=== PATIENT | male | born 1965 | race Caucasian/White ===

== ENCOUNTER 2017-05-06 00:27 | Day surgery (SDC) | payer MEDICARE, OTHER ==
[~2017-05-06] VITALS: Ht 177.8 cm; Wt 81.6 kg
[~2017-05-06 00:27] MED LIST: ASPI325T32 PO; ATOR20TA PO; CHOL200025 PO; OLOP5DRO8 OP; OMEG500C PO; SERT20OR6 PO; VERA240C3 PO
[2017-05-06] MEDS ORDERED: Sodium Chloride LOK Flush 10 mL Syringe IV PRN (07:55)
[2017-05-06] MEDS ORDERED: fentaNYL-PF 50 mCg/mL 2 mL Inj IVPUSH PRN (07:55)
[2017-05-06] MEDS ORDERED: SERT50TA9 PO (07:57)
[2017-05-06 08:11] VITALS: BP 142/89; PULSE 65; RESP 14; O2SAT 94
[2017-05-06] MEDS: 0.9% Sodium Chloride 1,000 ML IV PRN ×2 (08:32→08:55)
[2017-05-06 09:05] VITALS: BP 136/78; PULSE 60; RESP 14; O2SAT 93
[2017-05-06 09:15] VITALS: BP 122/76; PULSE 59; RESP 16; O2SAT 90
[2017-05-06 09:25] VITALS: BP 138/92; PULSE 69; RESP 16; O2SAT 95
--- NOTE | 2017-05-06 09:52 | ENDO ---
[address] [address] ENDOSCOPY PROCEDURE PATIENT: NAKIA ALATORRE : 1965 MR#: [id number] ADMIT: 05/06/2017 JOB ID: [id number] DATE OF SERVICE: 05/06/2017 OPERATION: 1. Esophagogastroduodenoscopy. 2. Biopsy. 3. Colonoscopy. PREOPERATIVE DIAGNOSES: 1. Left upper quadrant pain. 2. Colorectal cancer. POSTOPERATIVE DIAGNOSES: 1. Normal upper endoscopy. 2. Status post biopsy. 3. Normal colonoscopy. ANESTHESIA: 1. Fentanyl 125 mcg. 2. Versed 7 mg IV administered. COMPLICATIONS: None. BLOOD LOSS: Minimal. DESCRIPTION OF PROCEDURE: After risks and benefits were explained to the patient, informed consent was obtained. After anesthesia administered, upper endoscope was inserted into the esophagus, stomach, second portion of duodenum. Mucosa carefully examined. After the procedure was done, the scope was withdrawn and the procedure terminated. A colonoscope was inserted per rectum to the cecum. Mucosa carefully examined. Prep of the patient was fair. After the procedure was done, the scope withdrawn and the procedure terminated. FINDINGS: Upon inspection of the esophagus, the esophagus was normal without masses, ulcers, or lesions. Z-line located 40 cm from incisors. Upon entering the stomach, the stomach was also normal without masses, ulcers, or lesions. Retroflexion was normal. Duodenal bulb, first and second portion were normal. Biopsies taken of antrum and body of the stomach. no masses, hemorrhoids, ulcers, fissures that were seen. Throughout the entire examination, no polyps, masses or lesions. Retroflexion was normal. IMPRESSIONS: 1. Normal upper endoscopy. 2. Status post biopsy. 3. Normal colonoscopy. RECOMMENDATION: 1. Await pathology results. 2. Repeat colonoscopy in 10 years for colorectal cancer screening. 3. Follow up in GI clinic as needed.
--- NOTE | 2017-05-09 14:36 | PATH ---
SURGICAL PATHOLOGY Attending Physician:Ok Melendez MD CASE STATUS: Signed Out PATIENT NAME: NAKIA ALATORRE PID: [id number] : 1965 DATE COLLECTED:05/06/2017 21:53 SPECIMEN: 1: Gastric, Biopsy 2: Stomach, Antrum, Biopsy CLINICAL HISTORY: ABDOMINAL PAIN, NO ABNORMALITIES ON EGD 1). GASTRIC BODY BIOPSY 2). ANTRAL BIOPSY FINAL DIAGNOSIS: 1.GASTRIC BODY, BIOPSY: NORMAL GASTRIC CORPUS. Negative for Helicobacter organisms. Negative for intestinal metaplasia. No evidence of dysplasia or malignancy. 2.GASTRIC ANTRUM, BIOPSY: NORMAL GASTRIC ANTRUM. Negative for Helicobacter organisms. Negative for intestinal metaplasia. No evidence of dysplasia or malignancy. ICD10 R10.9 GROSS DESCRIPTION: The specimens are received in formalin, labeled with the patient's name and sublabeled as the following: (1) gastric body BXs; (2) antral BXs. (1) The specimen consists of a fragment of esparza-yellow, glistening, rubbery, semi-translucent tissue (0.4 x 0.3 x 0.2 cm). Section code: (1A) intact tissue. Specimen entirely submitted. (2) The specimen consists of a fragment of esparza-yellow, glistening, rubbery, semi-translucent tissue (0.5 x 0.2 x 0.1 cm). Section code: (2A) intact tissue. Specimen entirely submitted. ([id number]) MICRO DESCRIPTION: See diagnosis. ICD-9 CODES: CPT CODES: 1: 27204 2: 74742 Electronically Signed Out Torito Cuellar MD [facility] Pathology [facility] [address], [place] [address] Technical component performed at [facility], [facility] [address], [place], [address]
== END 2017-05-06 23:59 | disposition home or self-care (01) ==
LOC: END 00:27 → EDUNIT# 08:30 → END 23:59
PROVIDERS: ATTEND Internal Medicine Gastroenterology
DX: Z12.11 Encounter for screening for malignant neoplasm of colon (principal); R10.12 Left upper quadrant pain; R07.81 Pleurodynia; Z86.73 Personal history of transient ischemic attack (TIA), and cerebral infarction without residual deficits; Z79.82 Long term (current) use of aspirin
CPT/HCPCS: 43239; 88305; 99153; G0121; G0500; J2250; J3010; J7030

== ENCOUNTER 2017-08-08 07:36 | Emergency (ER) | payer MEDICARE, OTHER ==
[~2017-08-08 07:36] MED LIST changes: -SERT20OR6 PO; +SERT50TA9 PO
--- NOTE | 2017-08-08 07:37 | ED.REPORT ---
HPI-Stroke / CVA Aug 08, 2017 ED Provider: Arianne Ramires MD Patient is a 52 year old male with a history of two prior strokes and hypertension who presents to the ED via EMS due to right sided paralysis. Per EMS, the patient went to bed at 2100 last night, normal and woke up this morning unable to move his right arm or leg. Patient is not on anticoagulants. History is limited due to patient's expressive aphasia. Nursing Notes Stated Complaint: RIGHT SIDE WEAKNESS Nursing Notes Reviewed: Yes Allergies: Coded Allergies: No Known Allergies (Verified Allergy, Unknown, 05/06/17) Scheduled Aspirin (Aspirin) 325 Mg Tablet 325 MG PO DAILY (Reported) Atorvastatin (Lipitor) 20 Mg Tablet 20 MG PO DAILY (Reported) Olopatadine HCl (Olopatadine HCl) 0.1 % Drops 5 ML OP DAILY (Reported) Sertraline HCl (Sertraline) 50 Mg Tablet 50 MG PO DAILY (Reported) Verapamil SR (Verapamil SR) 240 Mg Cap24h.pel 240 MG PO DAILY (Reported) Miscellaneous Medications Cholecalciferol (Vitamin D3) (Vitamin D3) 2,000 Unit Tablet 2,000 UNIT PO ( Reported) [place]-3 Fatty Acids (Fish Oil) 500 Mg Capsule.dr 1,000 MG PO (Reported) General Time Seen by Provider: 07:39 Chief Complaint Weakness Right-sided Hx Obtained From: Patient, EMS Arrived By: Ambulance Time last known well last night 2100 Sudden in Onset?: Yes Context of Onset: During sleep Symptom Duration: Since onset Progression Since Onset: Unchanged Context Related History: Reports: Cerebrovascular accident Risk Factors )( TPA Administration/Criteria Stroke Thrombolytic Therapy : TPA Considered: Yes Neurologist Contacted: Yes Disc Risk/Benefit/Alternatives: Yes TPA Administered Intravenously: No, not indicated (unknown last known normal ) Inclusion Criteria: Measurable neuro deficit, 18 years or older NIH Stroke Scale Level of Consciousness: Alert and responsive (0) Ask Month & Age: Both questions right (0) Open/Close Eyes/Hand Commercial Loan Manager: Performs both tasks (0) Horizontal EO Movements: None (0) Visual Guerra: No visual loss (0) (testing is difficulty because of aphasia , no confidence in this exam) Facial Palsy: Partial paral, lower (2) (right side) Right Arm Motor Drift (10s): No movement (4) Left Arm Motor Drift (10s): No drift 10 sec (0) Right Leg Motor Drift (5s): Drift, not touch bed (1) Left Leg Motor Drift (5s): No drift 5 sec (0) Limb Ataxia FNF/Heel-Mello: Does not understand (0) Sensation (Arms/Legs/Face): Complete sensory loss (2) Language Aphasia: Severe, fragmented (2) Dysarthria: Severe slur unintel (2) Extinction/Inattention: Inatt spatial/person (1) NIHSS Score: 14 Time NIHSS Performed: 07:42 Date NIHSS Performed: Aug 08, 2017 )( CVA Risk Stratification Atrial fibrillation Hypertension Prior CVA/TIA Risk factors reviewed Past Medical History Past Medical History Reports: Hypertension, Stroke, Transient ischemic attack Reports: Atrial fibrillation Smoking History Unknown if Ever Smoker Social History Other Social History: Lives with parents Ambulatory Status Independent Review of Systems Neurologic: Reports: Weakness Complete sys rev & neg: except as marked. Physical Exam Initial Vital Signs Vital Signs (First) Date Time Temp Pulse Resp B/P Pulse Ox O2 Delivery O2 Flow Rate FiO2 08/08/17 07:44 37.1 63 18 146/73 98 Nasal Cannula 2 Initial VS: Reviewed General/Constitutional: Awake, Alert Head / Eyes: Atraumatic, Normocephalic Neck: Atraumatic, Supple Respiratory / Chest: Atraumatic, Breath sounds NL, Breath sounds = bilat, No respiratory distress Cardiovascular: Heart rate NL, Regular rhythm, Heart sounds NL Speech: Positive: Expressive aphasia Focal Weakness: Positive: Lower extremity R, Upper extremity R NIHSS 14 on arrival Skin: Atraumatic, Color NL, No rash, Warm, Dry Interpretation & Diagnostics Lab Results Interpretation Result Diagram: 08/08/17 0737 08/08/17 0737 Test 08/08/17 07:37 08/08/17 08:50 White Blood Count 7.2th/mm3 (3.8-10.1) Red Blood Count 6.88mil/mm3 (4.40-5.80) Hemoglobin 14.3g/dL (13.8-17.2) Hematocrit 42.1% (41.0-50.0) Mean Corpuscular Volume 61.2fL (81-100) Mean Corpuscular Hemoglobin 20.8pg (27.0-35.0) Mean Corpuscular Hemoglobin Concent 34.0% (32.0-37.0) Red Cell Distribution Width 18.4% (12.3-15.4) Platelet Count 215bil/L (150-400) Neutrophils (%) (Auto) 40.0% (40-74) Lymphocytes (%) (Auto) 47.1% (14-46) Monocytes (%) (Auto) 8.5% (4-12) Eosinophils (%) (Auto) 3.9% (0-5) Basophils (%) (Auto) 0.4% (0-3) Prothrombin Time 11.0sec (8.1-12.5) Prothromb Time International Ratio 1.03ratio Activated Partial Thromboplast Time 28.0sec (22.8-33.0) Sodium Level 139mEq/L (134-144) Potassium Level 4.0mEq/L (3.5-5.2) Chloride Level 100mEq/L (97-108) Carbon Dioxide Level 24mmol/L (18-29) Blood Urea Nitrogen 17mg/dL (6-24) Creatinine 1.06mg/dL (0.76-1.27) Estimat Glomerular Filtration Rate 78mL/min (>59) Glucose Level 101mg/dL (60-99) Calcium Level 9.4mg/dL (8.5-10.1) Total Bilirubin 1.7mg/dL (0.0-1.2) Aspartate Amino Transf (AST/SGOT) 34U/L (0-50) Alanine Aminotransferase (ALT/SGPT) 40U/L (0-44) Alkaline Phosphatase 62U/L (25-150) Troponin T 0.010ug/L (0.0-0.011) Total Protein 7.2g/dL (6.4-8.4) Albumin 4.7g/dL (3.4-5.0) Urine Color Straw (YELLOW) Urine Appearance Hazy (CLEAR,HAZY) Urine pH 6.5 (5.0-8.0) Urine Specific [place]very 1.005 (1.003-1.035) Urine Protein Negativemg/dL (NEG,TRACE) Urine Glucose (UA) Negativemg/dL (NEGATIVE) Urine Ketones Negativemg/dL (NEGATIVE) Urine Occult Blood Negative (NEGATIVE) Urine Nitrite Negative (NEGATIVE) Urine Bilirubin Negative (NEGATIVE) Urine Urobilinogen Normalmg/dL (NORMAL) Urine Leukocyte Esterase Negative (NEGATIVE) Urine RBC 0-2/hpf (0-2) Urine WBC 0-5/hpf (0-5) Urine Epithelial Cells Occasional/hpf (NONE-MOD) Urine Crystals None seen (NONE SEEN) Urine Bacteria None/hpf (NONE-FEW) Urine Hyaline Casts None/lpf (NONE) Urine Granular Casts None seen (NONE SEEN) Urine Waxy Casts None seen (NONE SEEN) Urine Red Blood Cell Casts None seen (NONE SEEN) Urine White Blood Cell Casts None seen (NONE SEEN) Urine Mucus None seen (None Seen) Urine Trichomonas None seen (NONE SEEN) Urine Yeast None (NONE SEEN) Urinalysis Comment None Urine Culture Reflexed Not indicated ECG Interpretation Time: 09:23 Interpreted by: ED physician Normal ECG Interpretation: Normal rate (59), Normal sinus rhythm CT Head Interpretation IMPRESSION: 1. No acute intracranial process. 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 2. No areas of hemodynamically significant stenosis, vascular occlusion or aneurysmal dilation within the anterior circulation. 3. No areas of hemodynamically significant stenosis, vascular occlusion or aneurysmal dilation within the posterior circulation. 4. No areas of hemodynamically significant stenosis, vascular occlusion or aneurysmal dilation within the neck vasculature. The above findings were discussed with Dr. Arianne Ramires on 08/08/17 and 8:20 AM. Dictated by: Heidi Belle M.D. on 08/08/2017 at 8:16 Approved by: Heidi Belle M.D. on 08/08/2017 at 8:26 Interpretation / Wet Read by: Interpret - Radiologist Re-Eval/Medical Decision Med Decision/Clinical Course 52-year-old gentleman. Well he went to bed at 9:00 last night. His father heard some disturbance in the room checked on him this morning and found him to be aphasic with significant right-sided weakness and right-sided facial droop. He is not a TPA candidate as there is a unknown time of onset. However with the significant findings and otherwise young and relatively healthy gentleman, interventional radiology is initially considered. Brain scan and CTA of the head and neck are ordered upon arrival. After review with both radiologist and neurology and neurology looking at films as well, joint decision was made to proceed with [facility] to facilitate rapid transport to [facility] for repeat MRI to see if there may be an interventional radiology option for this gentleman His NIH scale on arrival was 14, it was down 8 by the time he left. Care plan, concerns, findings, anticipated course of action at [facility] were reviewed with patient and his family prior to leaving with ALS transport to [facility]. Re-Evaluation/Progress : Time of Eval: 08:54 Re-Evaluation/Progress Note: Patient is able to lift his right arm, continues to improve. Discussed CT results and plan for transfer to [facility] for interventional radiology. Patient understands and agrees to plan. All questions were addressed. Repat NIH score was 8, compared to 14 at initial testing. NIH Stroke Scale : Level of Consciousness: Alert and responsive (0) Ask Month & Age: Both questions right (0) Open/Close Eyes/Hand Commercial Loan Manager: Performs both tasks (0) Horizontal EO Movements: None (0) Visual Guerra: No visual loss (0) Facial Palsy: Partial paral, lower (2) Right Arm Motor Drift (10s): Drift, not touch bed (1) Left Arm Motor Drift (10s): No drift 10 sec (0) Right Leg Motor Drift (5s): No drift 5 sec (0) Left Leg Motor Drift (5s): No drift 5 sec (0) Limb Ataxia FNF/Heel-Mello: Does not understand (0) Sensation (Arms/Legs/Face): Pinprick less sharp (1) Language Aphasia: Severe, fragmented (2) Dysarthria: Severe slur unintel (2) Extinction/Inattention: No exctinct/inattent (0) NIHSS Score: 8 Time NIHSS Performed: 08:58 Date NIHSS Performed: Aug 08, 2017 Consultation #1: Consulted With: Neurology Call Returned at: 07:47 Perianesthesia Rn: Agrees with eval, Agrees with plan Note: Consult with Dr. Justin Rogers, neurologist at [facility], who is concerned of the findings, will watch for CT results and agrees with the plan thus far. Consultation #2: Call Returned at: 08:19 Note: Consult with radiology who does not see any segmental occlusions Consultation #3: Consulted With: Neurology Call Returned at: 08:29 Note: Consult with Dr. Justin Rogers, neurologist at [facility] who review the CT with the IR provider. Consultation #4: Consulted With: Neurology Call Returned at: 08:49 Note: Consult with Dr. Justin Rogers, who will call the patient code IR and would like MRI screening Counseled Regarding: Diagnosis, Lab results, Need for transfer Patient Discharge & Departure Impression: Primary Impression: Stroke CVA mechanism: unspecified Qualified Code: I63.9 - Cerebral infarction, unspecified Disposition: Transfer, Acute Care Facility Receiving Hospital: [facility] Transfer Accepted: Yes Transfer Accepted at: 08:49 Transfer Reason: Higher level of care Spoke with: Attending physician Patient Status: Stable Patient Informed: Yes Discharge Condition All VS Reviewed: Yes Condition: Stable Referrals: Ok Melendez MD (PCP) Crit Care Except Billable Proc Time Spent: 30-74 minutes (43) Services Performed: Patient management by me, Time spent at bedside, Reviewing test results, Reviewing imaging, Discussing patient care, Documentation in record, Time with fam/surrogate Scribe Attestation Portions of this note were transcribed by Sanjuana Paz. I, Dr. Ramires personally performed the history, physical exam and medical decision-making; I reviewed and confirmed the accuracy of the information in the transcribed note. Signed by: Brant Henley, 08/08/17 copies to: Ok Melendez MD, Shawna L MD Aug 08, 2017 07:37 Carleen Paz Aug 08, 2017 07:45
[2017-08-08 07:44] VITALS: BP 146/73; PULSE 63; RESP 18; O2SAT 98
[2017-08-08 07:50] LABS: BASOPHILS % (AUTO) 0.4 % (0-3); EOSINOPHILS % (AUTO) 3.9 % (0-5); MONOCYTES % (AUTO) 8.5 % (4-12); Mean Corpuscular Hemoglobin 20.8 pg (27.0-35.0); Mean Corpuscular Volume 61.2 fL (81-100); Platelet Count 215 bil/L (150-400)
[2017-08-08 08:07] LABS: INR 1.03 ratio
[2017-08-08 08:12] LABS: TROPONIN T 0.01 ug/L (0.0-0.011)
--- NOTE | 2017-08-08 08:28 | DRSVH ---
PROCEDURE: CT ANGIO BRAIN NECK TPA INDICATIONS: STAT READ - CALL ED PROVIDER W/RESULTS TECHNIQUE: Pre-contrast 4.5 mm thick sections acquired from the foramen magnum to the vertex. After the adminis tration of intravenous contrast, 1 mm thick sections acquired from the aortic arch through the [place]. Post-contrast 4.5 mm thick sections then re-acquired from the foramen magnum to the vert ex. 3-dimensional ckehymv-ktpswptzn-uktouttchn (MIP) and/or volume rendering reformats were acquired of the central intracranial vasculature and neck separately. For radiation dose reduction, the foll owing was used: automated exposure control, adjustment of mA and/or kV according to patient size. COMPARISON: [facility], CT, CT HEAD WO CONTRAST, 12/18/2016, 8:28 PM. FINDINGS: Image quality: Excellent. BRAIN: The ventricular system and cortical sulci are normal in size and appearance for the patient's stated age. There is no acute intra-or extra axial fluid collection. No acute hemorrhage, mass lesion or mid line shift. Brainstem is unremarkable. 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 Globes are symmetrical. S inuses are aerated. Osseous structures are intact. HEAD CT ANGIOGRAPHY: The posterior circulation demonstrates a left vertebral artery dominance. Basilar artery and posterio r cerebral arteries demonstrate no areas of hemodynamically significant stenosis, vascular occlusion or aneurysmal dilation. Posterior communicating arteries are within normal limits. The anterior circulation, including the anterior and middle cerebral arteries, as well as internal ca rotid arteries demonstrates no areas of hemodynamically significant stenosis, vascular occlusion or a neurysmal dilation. NECK CT ANGIOGRAPHY: The origins of the left and right common, internal and external carotid arteries demonstrate no areas of hemodynamically significant stenosis, vascular occlusion or aneurysmal dilation. Origins of the v ertebral arteries demonstrate no areas of hemodynamically significant stenosis, vascular occlusion or aneurysmal dilation. Aortic arch demonstrates conventional anatomy. Limited, visualized portions sub clavian vasculature are unremarkable. Thyroid gland demonstrates a low attenuation within the right lobe. No priors are available for jah rison. Lung apices are clear. IMPRESSION: 1. No acute intracranial process. 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 2. No areas of hemodynamically significant stenosis, vascular occlusion or aneurysmal dilation within the anterior circulation. 3. No areas of hemodynamically significant stenosis, vascular occlusion or aneurysmal dilation within the posterior circulation. 4. No areas of hemodynamically significant stenosis, vascular occlusion or aneurysmal dilation within the neck vasculature. The above findings were discussed with Dr. Arianne Ramires on 08/08/17 and 8:20 AM. Dictated by: Heidi Belle M.D. on 08/08/2017 at 8:16 Approved by: Heidi Belle M.D. on 08/08/2017 at 8:26
[2017-08-08 08:39] VITALS: BP 146/87; PULSE 60; RESP 19; O2SAT 93
[2017-08-08 09:43] VITALS: BP 146/87; PULSE 60; RESP 19; O2SAT 93
[2017-08-08 09:52] LABS: APPEARANCE,URINE HAZY (CLEAR,HAZY); COLOR,URINE STRAW (YELLOW); OCCULT BLOOD,URINE NEGATIVE (NEGATIVE); PH,URINE 6.5 (5.0-8.0); UROBILINOGEN,URINE NORMAL (NORMAL)
== END 2017-08-08 09:44 | disposition short-term general hospital (02) ==
LOC: SED 07:36
DX: I63.9 Cerebral infarction, unspecified (principal); R29.708 NIHSS score 8; I10 Essential (primary) hypertension; I48.91 Unspecified atrial fibrillation; Z86.73 Personal history of transient ischemic attack (TIA), and cerebral infarction without residual deficits; Z79.82 Long term (current) use of aspirin
CPT/HCPCS: 36415; 70496; 70498; 80053; 81000; 84484; 85025; 85610; 85730; 93005; 99291; Q9967